=== PATIENT | male | born 1995 | race American Indian/Alaskan Native ===

== ENCOUNTER 2018-05-17 05:26 | Emergency (ER) | payer SELFPAY | END 2018-05-17 05:27 | disposition left against medical advice (07) | LOC: ED 05:26 | DX: Z53.21 Procedure and treatment not carried out due to patient leaving prior to being seen by health care provider (principal) ==

== ENCOUNTER 2019-10-01 04:12 | Emergency (ER) | payer SELFPAY ==
[2019-10-01 04:33] VITALS: BP 135/51
--- NOTE | 2019-10-01 05:24 | XRay Report ---
CHEST 1 VIEW INDICATION / CLINICAL INFORMATION: Chest Pain. COMPARISON: 04/20/2010 FINDINGS: SUPPORT DEVICES: None. HEART / MEDIASTINUM: No significant abnormality. LUNGS / PLEURA: No significant pulmonary or pleural abnormality. No pneumothorax. ADDITIONAL FINDINGS: No significant additional findings. IMPRESSION: 1. No acute findings. No interval change. Signer Name: Gina Bishop MD Signed: 10/01/2019 5:20 AM Workstation Name: [id number]
== END 2019-10-01 06:42 | disposition left against medical advice (07) ==
LOC: ED 04:12
DX: R07.89 Other chest pain (principal); Z53.21 Procedure and treatment not carried out due to patient leaving prior to being seen by health care provider
CPT/HCPCS: 71045; 93005; 93010